=== PATIENT | female | born 2000 | race Caucasian/White ===

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

== ENCOUNTER 2022-02-02 16:10 | Emergency (ER) | payer BC, SELFPAY ==
[2022-02-02 17:30] VITALS: BP 130/80; PULSE 68; RESP 18; TEMP 36.6; O2SAT 99; BMI 30.2
--- NOTE | 2022-02-02 17:58 | HMH.EDUTC ---
[facility] [place] Clinical Impression: URI (upper respiratory infection) Qualifiers: URI type: unspecified URI Qualified Code(s): J06.9 - Acute upper respiratory infection, unspecified Disposition: Home, Self-Care Condition on Discharge: Good Instructions: Sore Throat, DI for Nausea -- Adult Additional Instructions: *Monitor Temp, Over the counter Motrin or Tylenol as directed/as needed Tylenol every 4 hours and Motrin every 6 hours (as long as your family doctor has told you that you can take it) for fever or pain. and straight to ER if unable to lower temp less than 101.0 after medication given *Warm salt water gargles may help to soothe the throat *Throat Lozenges *Warm fluids like tea with honey may help to soothe the throat *Sleep elevated *Humidifier/Vaporizer Your throat swab was sent for culture. Those results are typically sent to your primary care. Be sure to follow up in 2-3 days with your family doctor/primary care physician if no improvement so they can review those result and treat if necessary. If you don?t have a primary care doctor, I recommend you get one but in the mean time, you will have to return to a walk in clinic Follow up IMMEDIATELY for new or worsening symptoms or no Noticeable improvement over the next 48-72 hours. 911 for difficulty breathing or swallowing Prescriptions: Azithromycin [Z-López 250mg Tab] 250 mg PO DIRECTED #6 tab Transmission Status: Pending to [facility] #[id number] Referrals: Valencia Bueno MD [Primary Care Provider] - As needed Time of Disposition: 18:28 Medical Decision Making - Zack Inquiry Pt receiving controlled substance: No Zack was queried for this patient: No Vital Signs: 02/02/22 17:30 Temperature 97.9 F Temperature Source Oral Pulse Rate [Right Brachial] 68 Respiratory Rate 18 Blood Pressure [Right Arm] 130/80 Blood Pressure Mean [Right Arm] 96 Blood Pressure Source [Right Arm] Automatic Cuff Blood Pressure Position [Right Arm] Sitting 02 Sat by Pulse Oximetry 99 Oxygen Delivery Method Room Air - Lab Data Lab results reviewed: Yes: I reviewed the patient's lab results. Lab Results 02/02/22 17:38: Group A Strep Rapid Negative Orders (Tests/Meds): ORDERS Category Date Time Status Strep Screen Confirmation Stat Micro 02/02/22 17:38 Received [facility] [place] HPI - General Stated complaint: sore throat,vomiting Time Seen by Provider: 02/02/22 17:58 Mode of Arrival: Ambulatory Source of Information: Patient Limitations: No Limitations Description of Symptoms (Recalled from Triage Doc. by RN): PATIENT C/O VOMITING, FEVER AND SORE THROAT SINCE YESTERDAY. SISTER HAS STREP HEENT Symptoms (Recalled from RN notes): Yes Resp Symptoms (Recalled from RN notes): No Skin Symptoms (Recalled from RN notes): No MS Symptoms (Recalled from RN notes): No Functional Status (Recalled from RN notes): WNL - History of Present Illness Provider Complaint: Patient states that her sister was recently dx with strep throat State that she got up yesterday with sore throat, n/v and headache and thinks she may have it now too - Related Data Previous Rx's Medication Instructions Recorded dexAMETHasone [Decadron] 6 mg PO DAILY #7 tab 11/06/21 Azithromycin [Z-López 250mg Tab] 250 mg PO DIRECTED #6 tab 02/02/22 Allergies Allergy/AdvReac Type Severity Reaction Status Date / Time Penicillins Allergy Verified 02/02/22 17:53 - Worker's Comp Is this a Worker's Comp case?: No [facility] History - Hepatitis A Screen Drug use history?: No High risk sexual behaviors?: No History of sexually transmitted infection?: No Currently employed?: No Childcare worker?: No Do you have indoor plumbing?: Yes Do you have electricity?: Yes Attestation statement:: This patient has been screened for Hepatitis A risk factors. I have reviewed the patient's past medical history: Yes - Social History Alcohol Intake: never Occupational Status: other ROS
[2022-02-02 18:16] LABS: Strep Scrn Group A (Rapid) Negative (Negative)
[2022-02-02 18:26] VITALS: BP 130/80; PULSE 68; RESP 18; TEMP 36.6; O2SAT 99
== END 2022-02-02 18:32 | disposition home or self-care (01) ==
PROVIDERS: Emergency Provider Nurse Practitioner; PCP Pediatrics
DX: J06.9 Acute upper respiratory infection, unspecified (principal); J02.9 Acute pharyngitis, unspecified; R11.10 Vomiting, unspecified; Z79.899 Other long term (current) drug therapy; Z88.0 Allergy status to penicillin
CPT/HCPCS: 87430; 99213; G0463

== ENCOUNTER 2022-02-22 18:18 | Emergency (ER) | payer BC, SELFPAY ==
[2022-02-22 20:14] VITALS: BP 124/74; PULSE 82; RESP 16; TEMP 36.6; O2SAT 99; BMI 31.4
--- NOTE | 2022-02-22 20:55 | HMH.EDUTC ---
[facility] [place] Disposition Clinical Impression: Other specified inflammation of vagina and vulva, Folliculitis Disposition: Home, Self-Care Condition on Discharge: Good Instructions: Folliculitis, DI for Folliculitis Additional Instructions: Apply warm wet compresses to the affected sites three or four times per day for 15 minutes as tolerated, or soak in a warm bath tub with epsom salts in it thre Use the ointment as directed. Follow up with your regular doctor. Don't shave there for at least a month to allow this time to heal. Don't be having unprotected sex unless you are in a longterm monogamous relationship. GO TO THE ER FOR ANY WORSENING SYMPTOMS OR CONCERNS Prescriptions: Mupirocin [Bactroban 2% Ointment 22gm tube] 1 applicatio TP TID 7 Days #1 gm Transmission Status: Received by [facility] #[id number] Referrals: Valencia Bueno MD [Primary Care Provider] - Time of Disposition: 21:08 Medical Decision Making - Medical Records Medical records reviewed: No: I reviewed the patient's medical records. - Zack Inquiry Pt receiving controlled substance: No Vital Signs: 02/22/22 20:14 02/22/22 21:14 Temperature 98 F 98.8 F Temperature Source Oral Pulse Rate 96 H Pulse Rate [Left] 82 Respiratory Rate 16 24 Blood Pressure 0/0 L Blood Pressure [Right Arm] 124/74 Blood Pressure Mean [Right Arm] 90 02 Sat by Pulse Oximetry 99 Orders (Tests/Meds): ORDERS Category Date Time Status HSV Culture Without Typing Stat Micro 02/22/22 20:30 Received [facility] [place] HPI - General Stated complaint: raised bumps on vagina Time Seen by Provider: 02/22/22 20:15 Mode of Arrival: Ambulatory Source of Information: Patient Limitations: No Limitations Description of Symptoms (Recalled from Triage Doc. by RN): pt c/o raised yellow bumps on her vagina. pt states she had unprotected sex 3-4 days ago and this started two days ago. HEENT Symptoms (Recalled from RN notes): No Resp Symptoms (Recalled from RN notes): No Skin Symptoms (Recalled from RN notes): No MS Symptoms (Recalled from RN notes): No Functional Status (Recalled from RN notes): wnl - History of Present Illness Provider Complaint: She states that she has had an irritated area on her vulva for the past 3 days. - Related Data Previous Rx's Medication Instructions Recorded dexAMETHasone [Decadron] 6 mg PO DAILY #7 tab 11/06/21 Azithromycin [Z-López 250mg Tab] 250 mg PO DIRECTED #6 tab 02/02/22 Mupirocin [Bactroban 2% Ointment 1 applicatio TP TID 7 Days #1 gm 02/22/22 22gm tube] Allergies Allergy/AdvReac Type Severity Reaction Status Date / Time Penicillins Allergy Verified 02/02/22 17:53 - Worker's Comp Is this a Worker's Comp case?: No [facility] History - Hepatitis A Screen Drug use history?: No High risk sexual behaviors?: No History of sexually transmitted infection?: No Currently employed?: No Childcare worker?: No Do you have indoor plumbing?: Yes Do you have electricity?: Yes Attestation statement:: This patient has been screened for Hepatitis A risk factors. I have reviewed the patient's past medical history: Yes - Social History Alcohol Intake: never Occupational Status: other ROS Obtained: Yes All systems reviewed & no additional complaints - Constitutional Constitutional: Denies chills, Denies fever(s) - Genitourinary Female Genitourinary: Denies dysuria, Denies urinary incontinence, Denies urinary hesitancy, Denies urinary urgency, Denies vaginal discharge Physical Exam - General General appearance: alert, in no apparent distress - Head Head exam: atraumatic, normocephalic, normal inspection - Eye Eye exam: Present: normal appearance, PERRL, EOMI - ENT ENT exam: Present: normal exam, normal oropharynx, mucous membranes moist, TM's normal bilaterally, normal external ear exam - Neck Neck exam: Present: normal inspection, full ROM, trachea midline. Absent: meningismus,
[2022-02-22 21:14] VITALS: BP 0/0; PULSE 96; RESP 24; TEMP 37.1
== END 2022-02-22 21:25 | disposition home or self-care (01) ==
PROVIDERS: Emergency Provider Nurse Practitioner Family; PCP Pediatrics
DX: N76.89 Other specified inflammation of vagina and vulva (principal); Z88.0 Allergy status to penicillin
CPT/HCPCS: 87252; 99212; G0463

== ENCOUNTER 2022-05-01 20:50 | Emergency (ER) | payer BC, SELFPAY ==
[2022-05-01 20:51] VITALS: BP 140/68; PULSE 96; RESP 18; TEMP 37; O2SAT 96; BMI 30.2
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
[2022-05-01 21:22] LABS: Urine Pregnancy, HCG Qual. Negative (Negative)
--- NOTE | 2022-05-01 21:57 | PC.NURSE ---
Pt gone to RAD
--- NOTE | 2022-05-01 22:20 | PC.NURSE ---
PT back from RAD
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
[2022-05-01 23:57] VITALS: BP 112/73; PULSE 83; RESP 16; TEMP 36.7; O2SAT 99
== END 2022-05-02 00:04 | disposition home or self-care (01) ==
PROVIDERS: Emergency Provider Emergency Medicine; PCP Pediatrics
DX: S16.1XXA Strain of muscle, fascia and tendon at neck level, initial encounter (principal); S20.212A Contusion of left front wall of thorax, initial encounter; Z88.0 Allergy status to penicillin; V49.40XA Driver injured in collision with unspecified motor vehicles in traffic accident, initial encounter
CPT/HCPCS: 71046; 71250; 72125; 72128; 72131; 81025; 99285

== ENCOUNTER 2023-05-10 12:15 | Emergency (ER) | payer BC, SELFPAY ==
[2023-05-10 12:23] VITALS: BP 121/77; PULSE 83; RESP 18; TEMP 36.8; O2SAT 98; BMI 31.1
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
--- NOTE | 2023-05-10 12:30 | PC.NURSE ---
pt given a warm blanket, call cardozo within reach
[2023-05-10 13:00] VITALS: BP 128/80; PULSE 93; RESP 16; TEMP 36.8; O2SAT 98
== END 2023-05-10 13:02 | disposition home or self-care (01) ==
PROVIDERS: Emergency Provider Student in an Organized Health Care Education/Training Program; PCP Pediatrics
DX: M25.511 Pain in right shoulder (principal)
CPT/HCPCS: 73030; 99283; 99284

== ENCOUNTER 2023-06-29 16:05 | Emergency (ER) | payer BC, SELFPAY ==
[2023-06-29 16:06] VITALS: BP 128/85; PULSE 90; RESP 20; TEMP 36.8; O2SAT 100; BMI 31.6
--- NOTE | 2023-06-29 16:08 | PC.NURSE ---
[address] DR ANDERSEN AT BEDSIDE
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
--- NOTE | 2023-06-29 16:26 | ECG_ITS ---
APPROVED REPORT Exam: Resting ECG HR:84 bpm ECG Measurements Heart Rate 84 AXES PA 141 P 5 QRSd 110 QRS 47 QT 365 T -5 QTc 407 Conclusion SINUS RHYTHM WITH SINUS ARRHYTHMIA INCOMPLETE RIGHT BUNDLE BRANCH BLOCK [90+ ms QRS DURATION, TERMINAL R IN V1/V2, 40+ ms S IN I/aVL/V4/V5/V6] NONSPECIFIC T-WAVE ABNORMALITY BORDERLINE ECG UNCONFIRMED REPORT Electronically signed by : Beto Bolanos MD 06/30/2023 21:01:40
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
[2023-06-29 16:30] VITALS: BP 118/80; PULSE 82; RESP 18; O2SAT 99
[2023-06-29 16:30] LABS: POC Glucose,Bedside 88 (70-110)
[2023-06-29 16:33] LABS: Basophils # 0.1 K/mm3 (0-0.2); Basophils % 0.7 % (0.1-2.0); Eosinophils # 0.2 K/mm3 (0.0-0.4); Eosinophils % 2.4 % (0.1-12.0); Hematocrit 44.1 % (37.0-47.0); Hemoglobin 15.1 g/dL (12.2-16.2); Lymphocytes # 3.7 K/mm3 (0.7-4.5); Lymphocytes % 47.2 % (10-50); Mean Corpuscular HGB Conc 34.2 g/dL (31.8-35.4); Mean Corpuscular Hemoglobin 31.8 pg (27.0-31.2); Mean Corpuscular Volume 92.9 fl (81-99); Mean Platelet Volume 7.5 fl (7.4-10.4); Monocytes # 0.4 K/mm3 (0.1-1.0); Monocytes % 5.5 % (1.7-9.3); Neutrophils # 3.5 K/mm3 (1.8-7.8); Neutrophils % 44.1 % (37.0-80.0); Platelet Count 403 K/mm3 (142-424); Red Blood Count 4.75 M/mm3 (4.20-5.40); Red Cell Distribution Width 12.7 % (11.5-17.5); White Blood Count 7.8 K/mm3 (4.5-13.0)
--- NOTE | 2023-06-29 16:33 | PC.NURSE ---
PT TO CT
[2023-06-29 16:37] LABS: Chloride 107 mmol/L (98-107); Potassium 3.7 mmoL/L (3.5-5.1); Sodium 139 mmol/L (136-145)
[2023-06-29 16:39] LABS: Alanine Aminotransferase 34 U/L (12-78); Aspartate Amino Transferase 33 U/L (14-36); Blood Urea Nitrogen 10 mg/dl (7-17); Creatinine Clearance Estimated 139 mL/min (50-200); Estimated Glomerular Filt Rate 91 ml/min (>60); GFR (African American) 111 ML/MIN (>60)
[2023-06-29 16:40] LABS: Albumin Level 4.5 g/dl (3.5-5.0); Albumin/Globulin Ratio 1.3 (1.1-1.8); Alkaline Phosphatase 106 U/L (38-126); Anion Gap 15.7 mEq/L (5-15); Bilirubin,Total 0.5 mg/dl (0.2-1.3); Calcium 10.1 mg/dl (8.4-10.2); Carbon Dioxide 20 mmol/L (22.0-30.0); Globulin 3.5 g/dL (1.3-3.2); Glucose 95 mg/dl (74-100)
[2023-06-29 16:49] LABS: HCG Qualitative, Serum Negative (Negative)
[2023-06-29 16:54] LABS: Troponin I < 0.01 ng/ml (0.00-0.034)
--- NOTE | 2023-06-29 17:06 | PC.NURSE ---
PT RETURNED FROM CT
--- NOTE | 2023-06-29 17:24 | PC.NURSE ---
PT REPORTS NEED TO VOID, OFFERED BEDPAN. PT REFUSED
[2023-06-29 17:30] VITALS: BP 133/83; PULSE 102; RESP 20; O2SAT 99
--- NOTE | 2023-06-29 17:47 | PC.NURSE ---
ER reviewed c spine scan and cleared patient to have c collar removed. c collar removed and patient tolerated well
[2023-06-29 18:00] VITALS: BP 128/87; PULSE 97; O2SAT 100
--- NOTE | 2023-06-29 18:17 | PC.NURSE ---
per MD, it is ok to allow pt to stand and ambulate to the bathroom. Pt walked to the bathroom with standby assist and tolerated well.
--- NOTE | 2023-06-29 18:35 | PC.NURSE ---
DR ANDERSEN AT BEDSIDE UPDATING PT AND FAMILY
[2023-06-29 18:39] LABS: Microscopic, Urine URINE MICROSCOPIC (MICROSCOPIC)
[2023-06-29 18:51] LABS: Appearance,Urine CLEAR (Clear); Bilirubin,Urine Negative (Negative); Blood, Urine Negative (Negative); Color,Urine YELLOW (Yellow); Glucose,Urine (UA) Negative (Negative); Ketones,Urine Negative (Negative); Leukocyte Esterase,Urine Negative (Negative); Nitrate,Urine Negative (Negative); PH,Urine 6.5 (5.0-8.5); Protein,Urine Negative (Negative); Specific Gravity, Urine <= 1.005 (1.005-1.030); Urobilinogen,Urine 0.2 EU/dl (0.2)
[2023-06-29 18:56] VITALS: BP 121/72; PULSE 96; O2SAT 100
--- NOTE | 2023-06-29 19:06 | PC.NURSE ---
rounded on pt, no needs at this time
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
--- NOTE | 2023-06-29 20:12 | PC.NURSE ---
PT accepted to [facility]
[2023-06-29 20:39] VITALS: BP 121/84; PULSE 84; RESP 19; TEMP 36.8; O2SAT 98
== END 2023-06-29 20:39 | disposition short-term general hospital (02) ==
PROVIDERS: Emergency Provider Emergency Medicine
DX: S06.9X9A Unspecified intracranial injury with loss of consciousness of unspecified duration, initial encounter (principal); S37.20XA Unspecified injury of bladder, initial encounter; R07.9 Chest pain, unspecified; R10.30 Lower abdominal pain, unspecified; V49.49XA Driver injured in collision with other motor vehicles in traffic accident, initial encounter
CPT/HCPCS: 70450; 70496; 70498; 71045; 71275; 72125; 72128; 72131; 72170; 74174; 80053; 81001; 82962; 84484; 84703; 85025; 93005; 96374; 96375; 99285; J2405; Q9967

== ENCOUNTER 2023-11-19 09:42 | Emergency (ER) | payer BC, SELFPAY ==
[2023-11-19 10:10] VITALS: BP 145/99; PULSE 68; RESP 18; TEMP 36.8; O2SAT 96; BMI 32.0
--- NOTE | 2023-11-19 10:21 | ED_ITS ---
Discharge Plan Disposition Patient Disposition: Home, Self-Care Condition: Good Prescriptions Prescriptions: New ibuprofen [ibuprofen] 600 mg tablet 600 mg PO Q6HP PRN (Reason: Mild Pain) Qty: 30 0RF ctlzityivttsxqh-fcyxqnuos-JM [Bromfed DM] 2-30-10 mg/5 mL Syrup 5 ml PO Q6H PRN (Reason: Cough) Qty: 240 0RF ondansetron 4 mg Tablet,Disintegrating 4 mg PO Q8H PRN (Reason: Nausea) Qty: 12 0RF No Action lisdexamfetamine 20 mg capsule 20 mg PO DAILY Patient Comments: TAKE 1 CAPSULE BY MOUTH ONCE DAILY IN THE MORNING Referrals Follow up/Referrals: Provider,Referral, MD [Primary Care Provider] - See instructions Activity Restrictions/Add. Instructions Additional Instructions/Restrictions: Drink plenty of fluids. Take tylenol or ibuprofen for pain or fever. Take the medications as directed. Follow up with your regular doctor. GO TO THE ER FOR ANY WORSENING SYMPTOMS Clinical Impressions Clinical Impression: COVID-19 Stand Alone Forms Stand Alone Forms: Work/School Release Instructions Patient Instructions: Coronavirus Disease 2019, Preventing the Spread of Coronavirus Discharge Instructions Discharge ED Provider: Eligio Okeefe [facility] General Stated complaint: covid positive, vomiting Time Seen by Provider: 11/19/23 10:21 History of Present Illness Provider Complaint: She states that for the past 3 days she has had fever, chills, malaise. She tested positive on a home covid-19 test. She needs a pcr covid-19 test for her job. Related Data Home Medications Medication Instructions Recorded Confirmed lisdexamfetamine 20 mg capsule 20 mg PO DAILY 11/19/23 11/19/23 Previous Rx's Medication Instructions Recorded heenzktsgypicvy-gycunqxhdhoauij-UC 5 ml PO Q6H PRN Cough #240 mL 11/19/23 2 mg-30 mg-10 mg/5 mL oral syrup (Bromfed DM) ibuprofen 600 mg tablet 600 mg PO Q6HP PRN Mild Pain #30 11/19/23 tabs ondansetron 4 mg disintegrating 4 mg PO Q8H PRN Nausea #12 tabs 11/19/23 tablet Allergies Allergy/AdvReac Type Severity Reaction Status Date / Time Penicillins Allergy Verified 11/19/23 10:40 [facility] Disclaimer: The information contained in this section may have been updated after the patient was seen, as this information can be updated by other users. Social History Smoking Status: Never smoker alcohol intake: never current occupational status: other Travel in the last 8 weeks: None ROS Obtained: Yes All systems reviewed & no additional complaints except as documented Constitutional Constitutional: Reports chills and Reports fever(s) Eyes Eyes: Denies eye discharge ENT Ears, Nose, Mouth, and Throat: Reports as per HPI Cardiovascular Cardiovascular: Denies chest pain Respiratory Respiratory: Denies chest congestion and Reports cough Gastrointestinal Gastrointestingal: Reports nausea; Denies abdominal pain, constipation, cramping, diarrhea or vomiting Musculoskeletal Musculoskeletal: Denies arthralgias Integumentary/Breasts Skin/Breast: Denies rash Neurologic Neurologic: Denies paresthesias Physical Exam General General appearance: alert and in no apparent distress Head Head exam: atraumatic, normocephalic and normal inspection Eye Eye exam: Present normal appearance, PERRL and EOMI ENT ENT exam: Present normal exam, normal oropharynx, mucous membranes moist, TM's normal bilaterally and normal external ear exam Neck Neck exam: Present normal inspection, full ROM and trachea midline; Absent meningismus or lymphadenopathy Chest Chest inspection: Present normal inspection and symmetric chest wall rise; Absent tenderness Respiratory Respiratory exam: Present normal lung sounds bilaterally; Absent respiratory distress Cardiovascular Cardiovascular exam: Present regular rate and normal rhythm; Absent JVD Abdominal Exam Abdominal exam: Present soft and normal bowel sounds; Absent distention, tenderness or guarding Extremities Exam Extremities exam: Present normal inspection, full ROM and normal capillary refill; Absent calf tenderness Back Exam Back exam: Present normal inspection; Absent tenderness Neurological Exam Neurological exam: Present alert and oriented X3 Psychiatric Psychiatric exam: Present normal affect and normal mood Skin Skin exam: Present warm, dry, intact and normal color Lymphatic Lymphatic Findings: no adenopathy Medical Decision Making Medical Records Medical records reviewed: No I reviewed the patient's medical records. Zack Inquiry Pt receiving controlled substance: No Orders (Tests/Meds): ORDERS Category Date Time Status Covid-19 Nasal PCR ([facility]) Routine Lab 11/19/23 10:20 Ordered
[2023-11-19 10:41] VITALS: BP 145/99; PULSE 68; RESP 18; TEMP 36.8; O2SAT 96
== END 2023-11-19 10:41 | disposition home or self-care (01) ==
PROVIDERS: Emergency Provider Nurse Practitioner Family
DX: U07.1 COVID-19 (principal); R11.2 Nausea with vomiting, unspecified; R50.9 Fever, unspecified; R05.9 Cough, unspecified; R53.81 Other malaise
CPT/HCPCS: 87635; 99212; 99214; G0463

== ENCOUNTER 2024-02-17 17:05 | Emergency (ER) | payer BC, SELFPAY ==
[2024-02-17 17:10] VITALS: BP 117/76; PULSE 65; RESP 18; TEMP 36.7; O2SAT 96; BMI 33.5
--- NOTE | 2024-02-17 17:16 | EXP.UTC ---
Discharge Plan Disposition Patient Disposition: Home, Self-Care Condition: Good Prescriptions Prescriptions: New ondansetron 4 mg Tablet,Disintegrating 4 mg PO Q8H PRN (Reason: Nausea) Qty: 9 0RF No Action lisdexamfetamine 20 mg capsule 20 mg PO DAILY Patient Comments: TAKE 1 CAPSULE BY MOUTH ONCE DAILY IN THE MORNING Referrals Follow up/Referrals: Aime Chavez [Primary Care Provider] - See instructions Activity Restrictions/Add. Instructions Additional Instructions/Restrictions: Drink plenty of fluids. Take tylenol for pain or fever. Take the zofran as directed for nausea. Follow up with your regular doctor. GO TO THE ER FOR ANY WORSENING SYMPTOMS Clinical Impressions Clinical Impression: Gastroenteritis Stand Alone Forms Stand Alone Forms: Work/School Release Instructions Patient Instructions: Viral Gastroenteritis, DI for Viral Gastroenteritis -- Adult Discharge ED Provider: Eligio Okeefe [facility] General Stated complaint: diarrhea, abd cramps Time Seen by Provider: 02/17/24 17:37 History of Present Illness Provider Complaint: She states that for the past 1 day she has had nausea and abdominal cramping. She has vomited x1. She has also had diarrhea, but she states that it stopped earlier today. Related Data Home Medications Medication Instructions Recorded Confirmed lisdexamfetamine 20 mg capsule 20 mg PO DAILY 11/19/23 02/17/24 Previous Rx's Medication Instructions Recorded ondansetron 4 mg disintegrating 4 mg PO Q8H PRN Nausea #9 tabs 02/17/24 tablet Allergies Allergy/AdvReac Type Severity Reaction Status Date / Time Penicillins Allergy Verified 02/17/24 17:27 [facility] Disclaimer: The information contained in this section may have been updated after the patient was seen, as this information can be updated by other users. Social History Smoking Status: Never smoker alcohol intake: never current occupational status: other Travel in the last 8 weeks: None ROS Obtained: Yes All systems reviewed & no additional complaints except as documented Constitutional Constitutional: Denies chills, Denies fever(s) and Reports poor appetite ENT Ears, Nose, Mouth, and Throat: Denies dizziness, Denies neck pain and Denies sore throat Cardiovascular Cardiovascular: Denies dyspnea Respiratory Respiratory: Denies chest congestion, Denies cough and Denies dyspnea Gastrointestinal Gastrointestingal: Reports as per HPI, cramping, diarrhea, nausea and vomiting; Denies abdominal pain Genitourinary Female Genitourinary: Denies difficulty voiding, Denies dysuria, Denies hematuria, Denies urinary frequency, Denies urinary incontinence, Denies urinary hesitancy and Denies urinary urgency Musculoskeletal Musculoskeletal: Denies arthralgias, Denies back pain and Denies neck pain Integumentary/Breasts Skin/Breast: Denies rash Neurologic Neurologic: Denies dizziness Physical Exam General General appearance: alert and in no apparent distress Head Head exam: atraumatic and normocephalic Eye Eye exam: Present normal appearance, PERRL and EOMI ENT ENT exam: Present normal exam, normal oropharynx, mucous membranes moist, TM's normal bilaterally and normal external ear exam Neck Neck exam: Present normal inspection, full ROM and trachea midline; Absent tenderness, meningismus or lymphadenopathy Chest Chest inspection: Present normal inspection and symmetric chest wall rise; Absent tenderness, rash or abscess Respiratory Respiratory exam: Present normal lung sounds bilaterally; Absent respiratory distress, wheezes or stridor Cardiovascular Cardiovascular exam: Present regular rate and normal rhythm; Absent irregular rhythm, systolic murmur, diastolic murmur or JVD Abdominal Exam Abdominal exam: Present soft and hyperactive bowel sounds; Absent distention, tenderness, guarding, rebound, rigidity, psoas sign, obturator sign, heel tap sign, Carreon's sign, Rovsing's sign or tenderness at McBurney's Point Extremities Exam Extremities exam: Present normal inspection and full ROM; Absent tenderness Back Exam Back exam: Present normal inspection and full ROM; Absent tenderness, CVA tenderness (R) or CVA tenderness (L) Neurological Exam Neurological exam: Present alert, oriented X3 and CN II-XII intact Psychiatric Psychiatric exam: Present normal affect and normal mood Skin Skin exam: Present warm, dry, intact and normal color Lymphatic Lymphatic Findings: no adenopathy Medical Decision Making Medical Records Medical records reviewed: No I reviewed the patient's medical records. Zack Inquiry Pt receiving controlled substance: No Lab Data Lab results reviewed: Yes I reviewed the patient's lab results.
[2024-02-17 17:48] LABS: UTC Influenza A Antigen Negative (Negative); UTC Influenza B Antigen Negative (Negative)
[2024-02-17 18:05] VITALS: BP 117/76; PULSE 65; RESP 18; TEMP 36.7; O2SAT 96
== END 2024-02-17 18:04 | disposition home or self-care (01) ==
PROVIDERS: Emergency Provider Nurse Practitioner Family; PCP Pediatrics
DX: K52.9 Noninfective gastroenteritis and colitis, unspecified (principal); R11.2 Nausea with vomiting, unspecified
CPT/HCPCS: 87804; 99212; 99214; G0463

== ENCOUNTER 2024-03-03 11:18 | Emergency (ER) | payer BC, SELFPAY ==
[2024-03-03 11:55] VITALS: BP 115/70; PULSE 83; RESP 19; TEMP 36.8; O2SAT 98; BMI 32.8
[2024-03-03 12:09] LABS: UTC Pregnancy Test, Urine Negative (Negative)
--- NOTE | 2024-03-03 12:09 | XR_ITS ---
FINAL REPORT CLINICAL HISTORY: PAIN WHILE HAVING BOWEL MOVEMENTS FINDINGS: A single view of the abdomen was obtained. There is a nonobstructive bowel gas pattern. There is a mild to moderate amount of retained stool. There are no abnormally dilated loops of small bowel. There are no abnormal calcifications. IMPRESSION: Nonobstructive bowel gas pattern with mild to moderate stool burden.. Reviewed, Interpreted and Dictated by Yariel Christie MD Transcribed by Joanne Woodward Authenticated and . [facility]
--- NOTE | 2024-03-03 12:13 | EXP.UTC ---
Discharge Plan Disposition Patient Disposition: Left Against Medical Advice Condition: Good Referrals Follow up/Referrals: Aime Chavez [Primary Care Provider] - See instructions Clinical Impressions Clinical Impression: Patient left before treatment completed Discharge ED Provider: Briana Torres [facility] [place] General Stated complaint: lower adb pain, constiption Mode of Arrival: Ambulatory Source of Information: Patient Limitations: No Limitations Time Seen by Provider: 03/03/24 12:13 Description of Symptoms (Recalled from Triage Doc. by RN): PATIENT C/O CONSTIPATION SINCE YESTERDAY. PATIENT REPORTS PAIN AND NAUSEA WHEN SHE ATTEMPTS TO HAVE A BOWEL MOVEMENT HEENT Symptoms (Recalled from RN notes): No Resp Symptoms (Recalled from RN notes): No Skin Symptoms (Recalled from RN notes): No MS Symptoms (Recalled from RN notes): No Functional Status (Recalled from RN notes): WNL History of Present Illness Provider Complaint: Patient states that she started yesterday with cramping and discomfort when trying to have a bowel movement states that she was straining so hard it made her nauseous States today she was still feeling like she is constipated so she came in to get checked Related Data Allergies Allergy/AdvReac Type Severity Reaction Status Date / Time Penicillins Allergy Verified 02/17/24 17:27 Worker's Comp Is this a Worker's Comp case?: No [facility] Disclaimer: The information contained in this section may have been updated after the patient was seen, as this information can be updated by other users. Social History Smoking Status: Never smoker alcohol intake: never current occupational status: other Travel in the last 8 weeks: None ROS Obtained: Yes All systems reviewed & no additional complaints except as documented and Yes Systems reviewed as appropriate & no additional complaints except as documented Constitutional Constitutional: Reports system reviewed and no additional complaints, except as documented, Reports as per HPI, Denies body ache, Denies chills and Denies fever(s) ENT Ears, Nose, Mouth, and Throat: Reports system reviewed and no additional complaints, except as documented and Reports as per HPI Cardiovascular Cardiovascular: Reports system reviewed and no additional complaints, except as documented and Reports as per HPI Respiratory Respiratory: Reports system reviewed and no additional complaints, except as documented and Reports as per HPI Gastrointestinal Gastrointestingal: Reports system reviewed and no additional complaints, except as documented, as per HPI, constipation, cramping and nausea Genitourinary Female Genitourinary: Reports system reviewed and no additional complaints, except as documented and Reports as per HPI Physical Exam General General appearance: alert and in no apparent distress ENT ENT exam: Present mucous membranes moist Respiratory Respiratory exam: Present normal lung sounds bilaterally; Absent respiratory distress or wheezes Cardiovascular Cardiovascular exam: Present regular rate, normal rhythm and normal heart sounds Abdominal Exam Abdominal exam: Present soft and normal bowel sounds; Absent distention or tenderness Neurological Exam Neurological exam: Present alert, oriented X3 and normal gait Medical Decision Making Zack Inquiry Pt receiving controlled substance: No Zack was queried for this patient: No Vital Signs: 03/03/24 11:55 Temperature 98.3 F Temperature Source Oral Pulse Rate [Left Brachial] 83 Respiratory Rate 19 Blood Pressure [Left Arm] 115/70 Blood Pressure Mean [Left Arm] 85 Blood Pressure Source [Left Arm] Automatic Cuff Blood Pressure Position [Left Arm] Sitting 02 Sat by Pulse Oximetry 98 Oxygen Delivery Method Room Air Lab Data Lab results reviewed: Yes I reviewed the patient's lab results. Lab Results 03/03/24 12:02: Tst Clinic Negative Orders (Tests/Meds): ORDERS Category Date Time Status XR KUB Stat Exams 03/03/24 12:09 Ordered Radiology Data #1: Image(s): KUB Image Reviewed: Yes I have reviewed radiologist's interpretation nonobstructing bowel gas patter with mild to moderate stool burden Medical Decision Narrative: Discussed transfer to the ED and patient declined states that she has court today at 2pm and will not be able to stay feels like she is constipated agreed to KUB in the [facility] and will go from there Still awaiting reading on KUB and pateint states that she is going to sign out AMA and doesnt want to wait she has court at 2pm and she cannot miss it that she will follow up with her PCP in the morning patient given strict return precautions Patient had to leave due to court and didnt wait for her results and signed out AMA, but spoke with her later about the reading of her KUB patient states she has miralax at home and mother is a nurse and informed her of magnesium citrate will try that for constipation and follow up with PCP if symptoms continue
[2024-03-03 13:32] VITALS: BP 115/70; PULSE 83; RESP 19; TEMP 36.8; O2SAT 98
== END 2024-03-03 13:33 | disposition left against medical advice (07) ==
PROVIDERS: Emergency Provider Nurse Practitioner; PCP Pediatrics
DX: R10.819 Abdominal tenderness, unspecified site (principal); K59.00 Constipation, unspecified
CPT/HCPCS: 74018; 81025; 99212; 99213; G0463

== ENCOUNTER 2024-04-22 21:13 | Emergency (ER) | payer BC, SELFPAY ==
[2024-04-22 21:14] VITALS: BP 130/95; PULSE 78; RESP 16; TEMP 36.7; O2SAT 100; BMI 29.2
--- NOTE | 2024-04-22 21:39 | PC.NURSE ---
Pt complains of rash on hand and foot that itches, no pain
--- NOTE | 2024-04-22 21:58 | HMH.EDGENADL ---
Discharge Plan Disposition Patient Disposition: Home, Self-Care Prescriptions Prescriptions: New hydrocortisone 2.5 % cream 1 applic topical BID 14 Days Qty: 30 0RF Referrals Follow up/Referrals: Aime Chavez [Primary Care Provider] - See instructions Activity Restrictions/Add. Instructions Additional Instructions/Restrictions: At this time it was felt you are safe to be discharged home. If new or worsening symptoms please do not hesitate to return the emergency department. If symptoms persist please follow-up with your family doctor as you are able. Please apply your steroids twice a day for 2 weeks. Avoid hot water, things that will dry her skin. Clinical Impressions Clinical Impression: Dyshidrotic eczema Instructions Patient Instructions: DI for Skin Abscess Discharge ED Provider: Nathan Zabala General Adult HPI General Chief complaint: Skin/Abscess/Foreign Body Stated complaint: rash Time Seen by Provider: 04/22/24 21:35 Mode of Arrival: Ambulatory Source of Information: Patient Limitations: No Limitations Description of Symptoms (Recalled from ER Triage Doc. by RN): pt c/o red spots on her hand and feet x several days History of Present Illness HPI narrative: Patient is a 23-year-old female with no pertinent past medical history who presents emergency department for evaluation of rash. It waxes and wanes, is on her palm plantar surface, no oral lesions, has been going on and off over the last month. She also has a rash that intermittently goes across her cheeks. Never used IV drugs, no new exposures, no other acute complaints at this time. Related Data Previous Rx's Medication Instructions Recorded hydrocortisone 2.5 % topical cream 1 applic topical BID eczema 2 04/22/24 weeks #30 grams Allergies Allergy/AdvReac Type Severity Reaction Status Date / Time Penicillins Allergy Verified 02/17/24 17:27 [facility] Disclaimer: The information contained in this section may have been updated after the patient was seen, as this information can be updated by other users. Social History Smoking Status: Never smoker alcohol intake: never current occupational status: other Travel in the last 8 weeks: None ROS Obtained: Yes Systems reviewed as appropriate & no additional complaints except as documented Physical Exam General General appearance: alert and in no apparent distress Head Head exam: atraumatic and normocephalic Eye Eye exam: Present PERRL ENT ENT exam: Present mucous membranes moist Neck Neck exam: Present normal inspection Chest Chest inspection: Present normal inspection and symmetric chest wall rise Respiratory Respiratory exam: Absent respiratory distress Cardiovascular Cardiovascular exam: Present regular rate and normal rhythm Abdominal Exam Abdominal exam: Present soft Extremities Exam Extremities exam: Present normal inspection Neurological Exam Neurological exam: Present alert Psychiatric Psychiatric exam: Present normal affect Skin Skin exam: Present warm, dry and other (Scattered papular rash over the hands and feet, some of which are excoriated and peeling. No superinfection. Digits of hands and feet are well-perfused.) Medical Decision Making Zack Inquiry Pt receiving controlled substance: No Vital Signs: 04/22/24 21:14 Temperature 98.1 F Temperature Source Oral Pulse Rate [Right] 78 Respiratory Rate 16 Blood Pressure [Right Arm] 130/95 H Blood Pressure Mean [Right Arm] 106 02 Sat by Pulse Oximetry 100 Medical Decision Narrative: In summary patient is a 23-year-old female past medical history described above who presents emergency department for evaluation of rash. Patient is hemodynamically stable nontoxic-appearing upon arrival, afebrile. Patient is overall well-appearing, rash is consistent with dyshidrotic eczema given history, physical exam, lack of mucosal involvement. given this patient is appropriate for discharge at this time will be discharged with low potency steroids twice a day for 2 weeks. Patient was given return precautions. Critical Care Critical Care Time Critical Care Time: No
[2024-04-22 22:09] VITALS: BP 107/76; PULSE 67; RESP 16; TEMP 36.7; O2SAT 98
== END 2024-04-22 22:10 | disposition home or self-care (01) ==
PROVIDERS: Emergency Provider Emergency Medicine; PCP Pediatrics
DX: L30.1 Dyshidrosis [pompholyx] (principal)
CPT/HCPCS: 99283

== ENCOUNTER 2024-06-04 08:00 | Emergency (ER) | payer BC, SELFPAY ==
[2024-06-04 08:15] VITALS: BP 110/71; PULSE 86; RESP 19; TEMP 36.7; O2SAT 98; BMI 31.4
--- NOTE | 2024-06-04 08:37 | EXP.UTC ---
Discharge Plan Disposition Patient Disposition: Home, Self-Care Condition: Good Prescriptions Prescriptions: New azithromycin [Zithromax Z-López] 250 mg tablet See Rx Instructions .ROUTE .COMPLEX 5 Days Qty: 6 0RF Rx Instructions: For 250 mg dose pack: take 500 mg today (day 1), then 250 mg for 4 days (days 2-5) ondansetron 4 mg tablet,disintegrating 4 mg PO Q8H PRN (Reason: nausea and vomiting) Qty: 10 0RF Referrals Follow up/Referrals: Aime Chavez [Primary Care Provider] - See instructions Activity Restrictions/Add. Instructions Additional Instructions/Restrictions: *Monitor Temp, Over the counter Motrin or Tylenol as directed/as needed Tylenol every 4 hours and Motrin every 6 hours (as long as your family doctor has told you that you can take it) for fever or pain. and straight to ER if unable to lower temp less than 101.0 after medication given *Warm salt water gargles may help to soothe the throat *Throat Lozenges? *Warm fluids like tea with honey may help to soothe the throat? *Sleep elevated *Humidifier/Vaporizer Your throat swab was sent for culture. Those results are typically sent to your primary care. Be sure to follow up in 2-3 days with your family doctor/primary care physician if no improvement so they can review those result and treat if necessary. If you don?t have a primary care doctor, I recommend you get one but in the mean time, you will have to return to a walk in clinic Follow up IMMEDIATELY for new or worsening symptoms or no Noticeable improvement over the next 48-72 hours. 911 for difficulty breathing or swallowing You were tested for today for COVID19 your test result should be back in the next 24hours, you may check your results on the [facility] Portal Clinical Impressions Clinical Impression: Otitis media Stand Alone Forms Stand Alone Forms: Work/School Release Instructions Patient Instructions: Middle Ear Infection Print Language Print Language: Swiss Discharge ED Provider: Briana Torres [facility] [place] General Stated complaint: head congestion sore throat Mode of Arrival: Ambulatory Source of Information: Patient Limitations: No Limitations Time Seen by Provider: 06/04/24 08:37 Description of Symptoms (Recalled from Triage Doc. by RN): PATIENT C/O VOMITING, DIARRHEA, NAUSEA, AND CONGESTION THAT STARTED YESTERDAY HEENT Symptoms (Recalled from RN notes): Yes Resp Symptoms (Recalled from RN notes): No Skin Symptoms (Recalled from RN notes): No MS Symptoms (Recalled from RN notes): No Functional Status (Recalled from RN notes): WNL History of Present Illness Provider Complaint: Patient states that she has been around flu and COVID at work States that she started feeling bad yesterday and today they wanted her to come in and get tested States that she has been having diarrhea, nausea, upset stomach and States that she has also been having pain and pressure in her ears feels like she may have an ear infection Related Data Previous Rx's ?Medication ?Instructions ?Recorded azithromycin 250 mg tablet See Rx Instructions PO .COMPLEX 5 06/04/24 (Zithromax Z-López) days #6 tabs ondansetron 4 mg disintegrating 4 mg PO Q8H PRN nausea and 06/04/24 tablet vomiting #10 tabs Allergies Allergy/AdvReac Type Severity Reaction Status Date / Time Penicillins Allergy Verified 02/17/24 17:27 Worker's Comp Is this a Worker's Comp case?: No [facility] Disclaimer: The information contained in this section may have been updated after the patient was seen, as this information can be updated by other users. Social History Smoking Status: Never smoker alcohol intake: never current occupational status: other Travel in the last 8 weeks: None ROS Obtained: Yes All systems reviewed & no additional complaints except as documented and Yes Systems reviewed as appropriate & no additional complaints except as documented Constitutional Constitutional: Reports system reviewed and no additional complaints, except as documented, Reports as per HPI and Reports headache(s) ENT Ears, Nose, Mouth, and Throat: Reports system reviewed and no additional complaints, except as documented, Reports as per HPI, Reports otalgia, Reports headache(s) and Reports sore throat Cardiovascular Cardiovascular: Reports system reviewed and no additional complaints, except as documented and Reports as per HPI Respiratory Respiratory: Reports system reviewed and no additional complaints, except as documented and Reports as per HPI Gastrointestinal Gastrointestingal: Reports system reviewed and no additional complaints, except as documented, as per HPI, diarrhea, nausea and vomiting Neurologic Neurologic: Reports headache(s) Physical Exam General General appearance: alert and in no apparent distress ENT ENT exam: Present mucous membranes moist Expanded ENT Exam TM/Canal exam: Right TM: erythema and bulging Nose exam: Present sinus tenderness Throat exam: Present other (Pharyngeal erythema noted with PND) Respiratory Respiratory exam: Present normal lung sounds bilaterally; Absent respiratory distress or wheezes Cardiovascular Cardiovascular exam: Present regular rate, normal rhythm and normal heart sounds Neurological Exam Neurological exam: Present alert, oriented X3 and normal gait Medical Decision Making Zack Inquiry Pt receiving controlled substance: No Zack was queried for this patient: No Vital Signs: 06/04/24 08:15 Temperature 98.0 F Temperature Source Oral Pulse Rate [Left Brachial] 86 Respiratory Rate 19 Blood Pressure [Left Arm] 110/71 Blood Pressure Mean [Left Arm] 84 Blood Pressure Source [Left Arm] Automatic Cuff Blood Pressure Position [Left Arm] Sitting 02 Sat by Pulse Oximetry 98 Oxygen Delivery Method Room Air Lab Data Lab results reviewed: Yes I reviewed the patient's lab results. Orders (Tests/Meds): ORDERS Category Date Time Status Rapid PCR Covid and Flu A/B Stat Lab 06/04/24 08:27 Ordered
[2024-06-04 08:53] VITALS: BP 110/71; PULSE 86; RESP 19; TEMP 36.7; O2SAT 98
[2024-06-04 09:12] LABS: UTC Influenza A Antigen Negative (Negative); UTC Influenza B Antigen Negative (Negative); UTC Strep Screen (Rapid) Negative (Negative)
== END 2024-06-04 08:58 | disposition home or self-care (01) ==
PROVIDERS: Emergency Provider Nurse Practitioner; PCP Pediatrics
DX: H66.91 Otitis media, unspecified, right ear (principal); R11.0 Nausea; R19.7 Diarrhea, unspecified
CPT/HCPCS: 87635; 87804; 87880; 99212; 99214; G0463

== ENCOUNTER 2024-09-08 08:04 | Emergency (ER) | payer BC, SELFPAY ==
[2024-09-08 08:30] VITALS: BP 103/48; PULSE 66; RESP 20; TEMP 36.9; O2SAT 100; BMI 30.2
--- NOTE | 2024-09-08 08:35 | ED_ITS ---
Discharge Plan Disposition Patient Disposition: Home, Self-Care Condition: Good Prescriptions Prescriptions: New azithromycin [Zithromax] 250 mg tablet 250 mg PO UD DOSE PK Qty: 6 0RF Rx Instructions: Take two (2) tablets today, then one (1) tablet days #2 thru #5 methylprednisolone 4 mg Tablets,Dose Pack 4 mg PO DIRECTED 6 Days Qty: 21 0RF Rx Instructions: Take 1 pack as directed for 6 days [id number] [Bromfed DM] 2-30-10 mg/5 mL Syrup 5 ml PO Q6H PRN (Reason: Cough) Qty: 240 0RF Referrals Follow up/Referrals: Provider,Referral, MD [Primary Care Provider] - See instructions Activity Restrictions/Add. Instructions Additional Instructions/Restrictions: Drink plenty of fluids. Take tylenol or ibuprofen for pain or fever. Take the medications as directed. Follow up with your regular doctor. GO TO THE ER FOR ANY WORSENING SYMPTOMS Clinical Impressions Clinical Impression: Pharyngitis, Acute viral syndrome Stand Alone Forms Stand Alone Forms: Work/School Release Instructions Patient Instructions: Sore Throat, DI for Pharyngitis/Tonsillopharyngitis -- Adult Print Language Print Language: Indonesian Discharge ED Provider: Eligio Okeefe [facility] General Stated complaint: sore throat, ear pain, vomiting, fever Time Seen by Provider: 09/08/24 08:35 Related Data Previous Rx's ?Medication ?Instructions ?Recorded azithromycin 250 mg tablet 250 mg PO UD DOSE PK #6 tabs 09/08/24 (Zithromax) [id number] 5 ml PO Q6H PRN Cough #240 mL 09/08/24 2 mg-30 mg-10 mg/5 mL oral syrup (Bromfed DM) methylprednisolone 4 mg tablets in 4 mg PO DIRECTED 6 days #21 tabs 09/08/24 a dose pack Allergies Allergy/AdvReac Type Severity Reaction Status Date / Time Penicillins Allergy Verified 02/17/24 17:27 [facility] Disclaimer: The information contained in this section may have been updated after the patient was seen, as this information can be updated by other users. Social History Smoking Status: Never smoker alcohol intake: never current occupational status: other Travel in the last 8 weeks: None ROS Obtained: Yes All systems reviewed & no additional complaints except as documented Constitutional Constitutional: Reports chills and Reports fever(s) Eyes Eyes: Denies eye discharge ENT Ears, Nose, Mouth, and Throat: Reports as per HPI Cardiovascular Cardiovascular: Denies chest pain Respiratory Respiratory: Denies chest congestion and Reports cough Gastrointestinal Gastrointestingal: Reports nausea; Denies abdominal pain, constipation, cramping, diarrhea or vomiting Musculoskeletal Musculoskeletal: Denies arthralgias Integumentary/Breasts Skin/Breast: Denies rash Neurologic Neurologic: Denies paresthesias Physical Exam General General appearance: alert and in no apparent distress Head Head exam: atraumatic, normocephalic and normal inspection Eye Eye exam: Present normal appearance, PERRL and EOMI ENT ENT exam: Present mucous membranes moist and normal external ear exam Expanded ENT Exam TM/Canal exam: Bilateral TM: erythema and bulging Nose exam: Absent sinus tenderness Mouth exam: Present normal external inspection; Absent drooling Teeth exam: Present normal inspection Throat exam: Present tonsillar erythema, tonsillomegaly and tonsillar exudate Neck Neck exam: Present normal inspection, full ROM and trachea midline; Absent te nderness, meningismus or lymphadenopathy Chest Chest inspection: Present normal inspection and symmetric chest wall rise; Absent tenderness Respiratory Respiratory exam: Present normal lung sounds bilaterally; Absent respiratory distress, wheezes, stridor or accessory muscle use Cardiovascular Cardiovascular exam: Present regular rate and normal rhythm; Absent systolic murmur or diastolic murmur Abdominal Exam Abdominal exam: Present soft and normal bowel sounds; Absent distention, tenderness, guarding, rebound or rigidity Extremities Exam Extremities exam: Present normal inspection and normal capillary refill; Absent calf tenderness Back Exam Back exam: Present normal inspection and full ROM; Absent tenderness, CVA tenderness (R) or CVA tenderness (L) Neurological Exam Neurological exam: Present alert, oriented X3 and CN II-XII intact Psychiatric Psychiatric exam: Present normal affect and normal mood Skin Skin exam: Present warm, dry, intact and normal color Medical Decision Making Medical Records Medical records reviewed: No I reviewed the patient's medical records. Screening: Per USPSTF and CDC recommendations, given the prevalence of disease in our region, it is our hospital?s policy to screen for HIV and viral Hepatitis for all patients aged 18 and over and those with ongoing risk factors. Zack Inquiry Pt receiving controlled substance: No Lab Data Lab results reviewed: Yes I reviewed the patient's lab results.
[2024-09-08 08:39] LABS: UTC Strep Screen (Rapid) Negative (Negative)
[2024-09-08 08:52] VITALS: BP 103/48; PULSE 66; RESP 20; TEMP 36.9; O2SAT 100
[2024-09-08 09:06] LABS: Coronavirus 19, PCR Not Detected (NotDetected); Influenza A, PCR Not Detected (NotDetected); Influenza B, PCR Not Detected (NotDetected)
== END 2024-09-08 08:58 | disposition home or self-care (01) ==
PROVIDERS: Emergency Provider Nurse Practitioner Family
DX: J02.9 Acute pharyngitis, unspecified (principal)
CPT/HCPCS: 87636; 87880; 99213; G0381

== ENCOUNTER 2024-11-13 15:15 | Emergency (ER) | payer BC, SELFPAY ==
[2024-11-13 15:45] VITALS: BP 120/70; PULSE 83; RESP 18; TEMP 37.3; O2SAT 97; BMI 30.7
[2024-11-13 15:51] LABS: UTC Strep Screen (Rapid) Negative (Negative)
--- NOTE | 2024-11-13 15:56 | EXP.UTC ---
Discharge Plan Disposition Patient Disposition: Home, Self-Care Condition: Good Prescriptions Prescriptions: New famotidine 40 mg tablet 40 mg PO HS 30 Days Qty: 30 2RF ondansetron 4 mg Tablet,Disintegrating 4 mg PO Q8H PRN (Reason: Nausea) Qty: 20 0RF Referrals Follow up/Referrals: Provider,Referral, [Primary Care Provider] - See instructions Activity Restrictions/Add. Instructions Additional Instructions/Restrictions: Drink plenty of fluids. Take tylenol or ibuprofen for pain or fever. Take the medications as directed. Follow up with your regular doctor. GO TO THE ER FOR ANY WORSENING SYMPTOMS Clinical Impressions Clinical Impression: Gastroenteritis Stand Alone Forms Stand Alone Forms: Work/School Release Instructions Patient Instructions: Viral Gastroenteritis, DI for Viral Gastroenteritis -- Adult Print Language Print Language: Greenlandic Discharge ED Provider: Eligio [place] [facility] [place] Stated complaint: vomiting,somach pain Mode of Arrival: Ambulatory Source of Information: Patient Time Seen by Provider: 11/13/24 15:56 Description of Symptoms (Recalled from Triage Doc. by RN): ACID REFLUX, FEVER, SORE THROAT HEENT Symptoms (Recalled from RN notes): Yes Resp Symptoms (Recalled from RN notes): No Skin Symptoms (Recalled from RN notes): No MS Symptoms (Recalled from RN notes): No Functional Status (Recalled from RN notes): WNL Related Data Previous Rx's ?Medication ?Instructions ?Recorded famotidine 40 mg tablet 40 mg PO HS 30 days #30 tabs 11/13/24 ondansetron 4 mg disintegrating 4 mg PO Q8H PRN Nausea #20 tabs 11/13/24 tablet Allergies Allergy/AdvReac Type Severity Reaction Status Date / Time Penicillins Allergy Verified 02/17/24 17:27 Worker's Comp Is this a Worker's Comp case?: No [facility] Disclaimer: The information contained in this section may have been updated after the patient was seen, as this information can be updated by other users. Social History Smoking Status: Never smoker alcohol intake: never current occupational status: other Travel in the last 8 weeks: None Have you lived/traveled outside [place] in past 30 days?: No Contact w/someone who lives/traveled outside US past 30 days?: No Exposure to someone with infectious disease in past 14 days?: No Do you have a fever (greater than 100.4 F or 38 C)?: No Have you tested positive for COVID-19: No Exposed to someone with COVID-19 in past 14 days?: No Do you have a sore throat?: Yes Do you have a cough?: No Do you have any weakness?: No Do you have any diarrhea?: No Are you experiencing any unusual bleeding?: No Do you have any muscle aches/pain?: No Do you have any abdominal pain?: No Are you experiencing loss of taste or smell?: No ROS Obtained: Yes All systems reviewed & no additional complaints except as documented Constitutional Constitutional: Denies chills, Denies fever(s) and Reports poor appetite ENT Ears, Nose, Mouth, and Throat: Denies dizziness and Denies sore throat Cardiovascular Cardiovascular: Denies dyspnea Respiratory Respiratory: Denies chest congestion, Denies cough and Denies dyspnea Gastrointestinal Gastrointestingal: Reports as per HPI; Denies abdominal pain Genitourinary Female Genitourinary: Denies difficulty voiding, Denies dysuria, Denies hematuria, Denies urinary frequency, Denies urinary incontinence, Denies urinary hesitancy and Denies urinary urgency Musculoskeletal Musculoskeletal: Denies arthralgias Integumentary/Breasts Skin/Breast: Denies rash Neurologic Neurologic: Denies dizziness Physical Exam General General appearance: alert and in no apparent distress Head Head exam: atraumatic and normocephalic Eye Eye exam: Present normal appearance, PERRL and EOMI ENT ENT exam: Present normal exam, normal oropharynx, mucous membranes moist, TM's normal bilaterally and normal external ear exam Neck Neck exam: Present normal inspection, full ROM and trachea midline; Absent tenderness, meningismus or lymphadenopathy Chest Chest inspection: Present normal inspection and symmetric chest wall rise; Absent tenderness, rash or abscess Respiratory Respiratory exam: Present normal lung sounds bilaterally; Absent respiratory distress, wheezes or stridor Cardiovascular Cardiovascular exam: Present regular rate and normal rhythm; Absent irregular rhythm, systolic murmur, diastolic murmur or JVD Abdominal Exam Abdominal exam: Present soft and hyperactive bowel sounds; Absent distention, tenderness, guarding, rebound, rigidity, psoas sign, obturator sign, heel tap sign, Carreon's sign, Rovsing's sign or tenderness at McBurney's Point Extremities Exam Extremities exam: Present normal inspection and full ROM; Absent tenderness Back Exam Back exam: Present normal inspection and full ROM; Absent tenderness, CVA tenderness (R) or CVA tenderness (L) Neurological Exam Neurological exam: Present alert, oriented X3 and CN II-XII intact Psychiatric Psychiatric exam: Present normal affect and normal mood Skin Skin exam: Present warm, dry, intact and normal color Lymphatic Lymphatic Findings: no adenopathy Medical Decision Making Medical Records Medical records reviewed: No I reviewed the patient's medical records. Screening: Per USPSTF and CDC recommendations, given the prevalence of disease in our region, it is our hospital?s policy to screen for HIV and viral Hepatitis for all patients aged 18 and over and those with ongoing risk factors. Zack Inquiry Pt receiving controlled substance: No Vital Signs: 11/13/24 15:45 Temperature 99.1 F Temperature Source Oral Pulse Rate [Left Radial] 83 Respiratory Rate 18 Blood Pressure [Left Arm] 120/70 Blood Pressure Mean [Left Arm] 86 02 Sat by Pulse Oximetry 97 Lab Data Lab results reviewed: Yes I reviewed the patient's lab results. Lab Results 11/13/24 15:44: Strep Scn Rapid Clinic Negative Orders (Tests/Meds): ORDERS Category Date Time Status Strep Screen Confirmation Stat Micro 11/13/24 15:44 Received
[2024-11-13 16:20] VITALS: BP 120/70; PULSE 83; RESP 18; TEMP 37.3
== END 2024-11-13 16:21 | disposition home or self-care (01) ==
PROVIDERS: Emergency Provider Nurse Practitioner Family
DX: K52.9 Noninfective gastroenteritis and colitis, unspecified (principal)
CPT/HCPCS: 87880; 99213; G0381

== ENCOUNTER 2025-03-09 07:13 | Emergency (ER) | payer BC, SELFPAY ==
[2025-03-09 07:23] VITALS: BP 121/79; PULSE 78; RESP 18; TEMP 36.6; O2SAT 98; BMI 31.1
[2025-03-09 07:30] VITALS: BP 107/80; PULSE 68; O2SAT 97
--- NOTE | 2025-03-09 07:57 | ED_ITS ---
Discharge Plan Disposition Patient Disposition: Home, Self-Care Condition: Good Prescriptions Prescriptions: New pantoprazole 40 mg tablet,delayed release (DR/EC) 40 mg PO DAILY Qty: 30 0RF ondansetron 4 mg tablet,disintegrating 4 mg PO Q8H PRN (Reason: nausea and vomiting) 4 Days Qty: 12 0RF polyethylene glycol 3350 [Miralax] 17 gram/dose powder 17 g PO DAILY Qty: 510 0RF dicyclomine 20 mg tablet 20 mg PO QID PRN (Reason: abdominal pain) Qty: 20 0RF No Action famotidine 40 mg tablet 40 mg PO HS 30 Days Qty: 30 2RF Referrals Follow up/Referrals: Provider,Referral, MD [Primary Care Provider] - See instructions Activity Restrictions/Add. Instructions Additional Instructions/Restrictions: You were evaluated in the emergency department today. Please take up your prescriptions at the pharmacy and take them as prescribed. Follow-up closely with your primary care provider. It may be beneficial to stop taking Ozempic if you continue to have symptoms while taking it. Return to the emergency department for new or worsening symptoms. Clinical Impressions Clinical Impression: Nausea & vomiting, Constipation Stand Alone Forms Stand Alone Forms: Work/School Release Instructions Patient Instructions: DI for Acute Abdominal Pain, Nausea and Vomiting-Adult Print Language Print Language: Serbian Discharge ED Provider: Lamar Ospina General Adult HPI General Chief complaint: Abdominal Pain Stated complaint: upper abd pain vomiting diarrhea Time Seen by Provider: 03/09/25 07:50 Mode of Arrival: Ambulatory Source of Information: Patient Description of Symptoms (Recalled from ER Triage Doc. by RN): States that she took her ozempic shot approx 2 days ago and now she is having upper abdomen cramping, nausea and vomiting. History of Present Illness HPI narrative: This patient is a 24-year-old female presenting to the emergency department for evaluation of concern for upper abdominal pain, nausea, vomiting, and constipation. Patient states that she took her Ozempic shot 2 days ago after taking a break from it for a month because she had been having abdominal cramping and pain. She notes that since taking it, she has had upper abdominal pain, cramping, and it feels like something is twisting in her upper abdomen. She notes that she had a bowel movement this morning but bowel movements are very hard for her. Emesis is nonbloody nonbilious. No fevers, cough, congestion, or other symptoms. No prior abdominal surgical history. Related Data Previous Rx's ?Medication ?Instructions ?Recorded famotidine 40 mg tablet 40 mg PO HS 30 days #30 tabs 11/13/24 dicyclomine 20 mg tablet 20 mg PO QID PRN abdominal pain 03/09/25 #20 tabs ondansetron 4 mg disintegrating 4 mg PO Q8H PRN nausea and 03/09/25 tablet vomiting 4 days #12 tabs pantoprazole 40 mg tablet,delayed 40 mg PO DAILY #30 tabs 03/09/25 release polyethylene glycol 3350 17 17 g PO DAILY #510 grams 03/09/25 gram/dose oral powder (Miralax) Allergies Allergy/AdvReac Type Severity Reaction Status Date / Time Penicillins Allergy Verified 03/02/25 19:05 [facility] Disclaimer: The information contained in this section may have been updated after the patient was seen, as this information can be updated by other users. Medical History Encounter to obtain excuse from work Social History Smoking Status: Never smoker alcohol intake: never current occupational status: other Travel in the last 8 weeks: None Have you lived/traveled outside US in past 30 days?: No Contact w/someone who lives/traveled outside US past 30 days?: No Exposure to someone with infectious disease in past 14 days?: No Do you have a fever (greater than 100.4 F or 38 C)?: No Have you tested positive for COVID-19: No Exposed to someone with COVID-19 in past 14 days?: No Do you have a sore throat?: No Do you have a cough?: No Do you have any weakness?: No Do you have any diarrhea?: No Are you experiencing any unusual bleeding?: No Do you have any muscle aches/pain?: No Do you have any abdominal pain?: Yes Are you experiencing loss of taste or smell?: No Other Medical History Have you received the Flu Vaccine for this season: No Have you received the Pneumonia Vaccine: No ROS Obtained: Yes All systems reviewed & no additional complaints except as documented Physical Exam General General appearance: alert and in no apparent distress Head Head exam: atraumatic and normocephalic Eye Eye exam: Present normal appearance, PERRL and EOMI ENT ENT exam: Present normal exam, normal oropharynx, mucous membranes moist and normal external ear exam Neck Neck exam: Present normal inspection, full ROM and trachea midline; Absent tenderness Chest Chest inspection: Present normal inspection and symmetric chest wall rise; Absent tenderness Respiratory Respiratory exam: Present normal lung sounds bilaterally; Absent respiratory distress, wheezes, stridor or accessory muscle use Cardiovascular Cardiovascular exam: Present regular rate and normal rhythm Abdominal Exam Abdominal exam: Present soft and tenderness (Epigastric); Absent distention or guarding Extremities Exam Extremities exam: Present normal inspection, full ROM and normal capillary refill; Absent tenderness or edema Back Exam Back exam: Present normal inspection and full ROM; Absent tenderness Neurological Exam Neurological exam: Present alert, oriented X3, CN II-XII intact and normal gait; Absent motor sensory deficit Psychiatric Psychiatric exam: Present normal affect and normal mood Skin Skin exam: Present warm and dry Medical Decision Making Medical Records Medical records reviewed: Yes I reviewed the patient's medical records. Screening: Per USPSTF and CDC recommendations, given the prevalence of disease in our region, it is our hospital?s policy to screen for HIV and viral Hepatitis for all patients aged 18 and over and those with ongoing risk factors. Zack Inquiry Pt receiving controlled substance: No Vital Signs: 03/09/25 07:23 03/09/25 07:30 03/09/25 08:00 Temperature 97.9 F Temperature Source Oral Pulse Rate 68 75 Pulse Rate [Radial] 78 Respiratory Rate 18 Blood Pressure 107/80 L 117/73 Blood Pressure [Right Arm] 121/79 Blood Pressure Mean [Right Arm] 93 Blood Pressure Source Blood Pressure Source [Right Arm] Automatic Cuff Blood Pressure Position Blood Pressure Position [Right Arm] Sitting 02 Sat by Pulse Oximetry 98 97 96 Oxygen Delivery Method Room Air 03/09/25 08:30 03/09/25 09:00 03/09/25 10:00 Temperature 98.0 F Temperature Source Oral Pulse Rate 75 68 72 Pulse Rate [Radial] Respiratory Rate 18 18 Blood Pressure 110/70 111/70 102/67 L Blood Pressure [Right Arm] Blood Pressure Mean [Right Arm] Blood Pressure Source Automatic Cuff Blood Pressure Source [Right Arm] Blood Pressure Position Sitting Blood Pressure Position [Right Arm] 02 Sat by Pulse Oximetry 96 97 Oxygen Delivery Method Room Air Lab Data Lab results reviewed: Yes I reviewed the patient's lab results. Lab Results 03/09/25 07:16: Urine HCG, Qual Negative 03/09/25 07:49: WBC 10.9 H, RBC 4.83, Hgb 15.6, Hct 44.0, MCV 91.1, MCH 32.3 H, MCHC 35.5 H, RDW 11.9, Plt Count 395, MPV 9.4, Neut % (Auto) 72.1, Lymph % (Auto) 20.1, [place] % (Auto) 7.1, Eos % (Auto) 0.3, Baso % (Auto) 0.2, Neut # (Auto) 7.9 H, Lymph # (Auto) 2.2, [place] # (Auto) 0.8, Eos # (Auto) 0.0, Baso # (Auto) 0.0, Sodium 139, Potassium 3.8, Chloride 103, Carbon Dioxide 27, Anion Gap 12.8, BUN 9, Creatinine 0.80, Estimated Creat Clear 134, Estimated GFR 90, Est GFR ( Amer) 109, Glucose 90, Calcium 9.7, Total Bilirubin 0.7, AST 39 H, ALT 36, Alkaline Phosphatase 85, Total Protein 8.0, Albumin 4.8, Globulin 3.2, Albumin/Globulin Ratio 1.5, Lipase 54, HCV Ab SANDRO w/Rflx PCR Qn Negative, HIV Ag/Ab Combo Qual Negative 03/09/25 07:49 03/09/25 07:49 Orders (Tests/Meds): ED MEDICATIONS Discontinued Medications Generic Name Dose Route Start Last Admin Trade Name Lalo PRN Reason Stop Dose Admin Acetaminophen 1,000 mg 03/09/25 07:56 03/09/25 08:07 Acetaminophen 1,000mg/100ml Vial IV 03/09/25 07:57 1,000 mg ONCE ONE Administration Dicyclomine HCl 20 mg 03/09/25 07:55 03/09/25 08:07 Dicyclomine 10mg Capsule PO 03/09/25 07:56 20 mg ONCE ONE Administration Famotidine 20 mg 03/09/25 07:55 03/09/25 08:07 Famotidine 20mg/2ml Vial IV 03/09/25 07:56 20 mg ONCE ONE Administration Lactated Ringer's 1,000 mls @ 999 mls/hr 03/09/25 07:55 03/09/25 08:07 Lactated Ringer's 1000 Ml Bag IV 03/09/25 08:55 999 mls/hr .Q1H1M ONE Administration Ketorolac Tromethamine 15 mg 03/09/25 07:56 03/09/25 08:07 Ketorolac 30mg/Ml Vial IV 03/09/25 07:57 15 mg ONCE ONE Administration Ondansetron HCl 4 mg 03/09/25 07:56 03/09/25 08:07 Ondansetron 4mg/2ml Vial IV 03/09/25 07:57 4 mg ONCE ONE Administration Sodium Chloride 8 ml 03/09/25 07:55 03/09/25 08:08 Sodium Chloride 0.9% 10ml Vial IV 04/08/25 07:54 8 ml NEEDED PRN Administration dilute pepcid ORDERS Category Date Time Status Complete Blood Count Auto Diff Stat Lab 03/09/25 07:49 Completed Comprehensive Metabolic Panel Stat Lab 03/09/25 07:49 Completed HIV Combo Stat Lab 03/09/25 07:49 Completed Hepatitis C Ab Qual. W/ RFX Stat Lab 03/09/25 07:49 Completed Lipase Stat Lab 03/09/25 07:49 Completed Urine , HCG Qual. Stat Lab 03/09/25 07:16 Completed Medical Decision Narrative: In summary, this patient is a 24-year-old female presenting to the Emergency Department for evaluation of upper abdominal pain, nausea, vomiting, constipation after taking her Ozempic shot 2 days ago. Differential diagnoses considered include but are not limited to gastroparesis, constipation, fecal impaction, gastroenteritis, peptic ulcer disease, gastritis, pancreatitis, cholecystitis. Ruling out the most morbid conditions drove assessment. On exam, the patient is lying in bed in no acute distress with reassuring vital signs on cardiac telemetry. Abdominal exam is benign with only mild epigastric tenderness but no rebound or guarding. Workup included CBC, CMP, lipase. She has an IUD, but test was obtained to be on the safe side. She was given a bolus of IV fluids as well as oral Bentyl, IV Pepcid, Zofran, acetaminophen, and Toradol for symptomatic improvement. I considered obtaining abdominal imaging such as CT scan, however based on reassuring history and exam I do not feel that it is indicated as it would likely not chemical cell changer, as I feel she is unlikely to have any acute surgical intra-abdominal pathology. On reassessment, the patient is resting comfortably with no recurrence of vomiting or diarrhea, unable to provide stool specimen here in the ED. She is tolerating oral intake after administration of medications and fluids as above. Labs obtained are reassuring, including CBC which does not demonstrate any significant leukocytosis. She has a mildly elevated white blood cell count which is likely leukemoid reaction from vomiting. AST is 39, but rest of liver enzymes, bilirubin, lipase are normal. Abdominal exam is benign. I advised her that I recommend stopping Ozempic if it continues to cause her abdominal pain. I feel that she is appropriate for discharge home with prescriptions for Pepcid, Bentyl, Zofran, and PPI. I also prescribed MiraLAX given her constipation. Strict return precautions were given as well as instructions for close follow-up Critical Care Critical Care Time Critical Care Time: No
[2025-03-09 08:00] VITALS: BP 117/73; PULSE 75; O2SAT 96
[2025-03-09 08:03] LABS: Albumin Level 4.8 g/dl (3.5-5.0); Basophils % 0.2 % (0.1-2.0); Chloride 103 mmol/L (98-107); Eosinophils % 0.3 % (0.1-12.0); Hemoglobin 15.6 g/dL (12.2-16.2); Lymphocytes # 2.2 K/mm3 (0.7-4.5); Lymphocytes % 20.1 % (10-50); Mean Corpuscular HGB Conc 35.5 g/dL (31.8-35.4); Mean Corpuscular Hemoglobin 32.3 pg (27.0-31.2); Mean Corpuscular Volume 91.1 fl (81-99); Mean Platelet Volume 9.4 fl (7.4-10.4); Monocytes # 0.8 K/mm3 (0.1-1.0); Monocytes % 7.1 % (1.7-9.3); Neutrophils # 7.9 K/mm3 (1.8-7.8); Neutrophils % 72.1 % (37.0-80.0); Nucleated Red Blood Cells # 0 10^3/uL; Nucleated Red Blood Cells % 0 %; Platelet Count 395 K/mm3 (142-424); Potassium 3.8 mmoL/L (3.5-5.1); Red Blood Count 4.83 M/mm3 (4.20-5.40); Red Cell Distribution Width 11.9 % (11.5-17.5); Red Cell Distribution Width-SD 39.4 fL; Sodium 139 mmol/L (136-145); White Blood Count 10.9 K/mm3 (4.8-10.8)
[2025-03-09 08:06] LABS: Alanine Aminotransferase 36 U/L (12-78); Albumin/Globulin Ratio 1.5 (1.1-1.8); Alkaline Phosphatase 85 U/L (38-126); Anion Gap 12.8 mEq/L (5-15); Aspartate Amino Transferase 39 U/L (14-36); Bilirubin,Total 0.7 mg/dl (0.2-1.3); Blood Urea Nitrogen 9 mg/dl (7-17); Calcium 9.7 mg/dl (8.4-10.2); Carbon Dioxide 27 mmol/L (22.0-30.0); Creatinine Clearance Estimated 134 mL/min (50-200); Estimated Glomerular Filt Rate 90 ml/min (>60); GFR (African American) 109 ML/MIN (>60); Globulin 3.2 g/dL (1.3-3.2); Glucose 90 mg/dl (74-100)
[2025-03-09] MEDS: KETOROLAC 30MG/ML VIAL 15 MG IV (08:07)
[2025-03-09] MEDS: ONDANSETRON 4MG/2ML VIAL 4 MG IV (08:07)
[2025-03-09] MEDS: LACTATED RINGERS 1000ML 1,000 ML 999 ML IV (08:07)
[2025-03-09] MEDS: FAMOTIDINE 20MG/2ML VIAL 20 MG IV (08:07)
[2025-03-09] MEDS: DICYCLOMINE 10MG CAPSULE 20 MG PO (08:07)
[2025-03-09] MEDS: ACETAMINOPHEN 1,000MG/100ML VIAL 1000 MG IV (08:07)
[2025-03-09] MEDS: SODIUM CHLORIDE 0.9% 10ML VIAL 8 ML IV (08:08)
[2025-03-09 08:23] LABS: Urine Pregnancy, HCG Qual. Negative (Negative)
[2025-03-09 08:30] VITALS: BP 110/70; PULSE 75; RESP 18; O2SAT 96
[2025-03-09 08:44] LABS: Lipase 54 U/L (23-300)
[2025-03-09 09:00] VITALS: BP 111/70; PULSE 68; O2SAT 97
[2025-03-09 10:00] VITALS: BP 102/67; PULSE 72; RESP 18; TEMP 36.7; O2SAT 99
[2025-03-09 10:05] LABS: HIV Combo NEGATIVE (Negative)
[2025-03-09 10:13] LABS: Hepatitis C Ab Qual. W/ RFX NEGATIVE (Negative)
== END 2025-03-09 10:01 | disposition home or self-care (01) ==
PROVIDERS: Emergency Provider Emergency Medicine
DX: R10.13 Epigastric pain (principal); R11.2 Nausea with vomiting, unspecified; K59.00 Constipation, unspecified; Z11.59 Encounter for screening for other viral diseases; Z11.4 Encounter for screening for human immunodeficiency virus [HIV]
CPT/HCPCS: 80053; 81025; 83690; 85025; 86803; 87389; 96361; 96374; 96375; 99284; J0131; J1885; J2405; J7120